=== PATIENT | male | born 1965 | race Caucasian/White ===

== ENCOUNTER → 2025-04-12 13:36 | Outpatient (CLI) | payer OTHER, SELFPAY ==
--- NOTE | 2025-04-12 13:38 | DI.MRI.S_ITS ---
PROCEDURE: MR ABDOMEN WO/W CON INDICATIONS: OTHER HEMOCHROMATOSIS TECHNIQUE: Coronal HASTE, axial 2D FLASH in- and [id number]; axial breath-hold T2 FSE. Dynamic axial VIBE during the administration of contrast; post-contrast coronal VIBE or 2D FLASH with fat saturation from the hepatic dome to the iliac crests. Optional diffusion weighted imaging and ADC may be performed. COMPARISON: None. FINDINGS: Image quality: Diagnostic. Lung bases: Unremarkable. Liver: No solid mass. No significant signal change between the inphase and out of phase images. Gallbladder: No gallstones or wall thickening. Biliary ducts: No biliary dilation. Pancreas: No ductal dilation. Spleen: Size is within normal limits. Adrenal Glands: No adrenal nodules. Kidneys and Ureters: No hydronephrosis. No solid mass. No complex renal cystic lesion which requires follow up. Stomach and Bowel: Normal colonic caliber, without significant wall thickening. Peritoneum: No abnormal intraperitoneal fluid. No free air. Ventral Wall: No hernia. Abdominal Nodes: No retroperitoneal or mesenteric adenopathy by size criteria. Vessels: Aorta and inferior vena cava are normal in size. Bones: No aggressive osseous abnormality. IMPRESSION: 1. No signs of significant iron deposition in the liver, spleen, pancreas or bone marrow. 2. No significant focal lesion seen. 3. Incompletely visualized fluid containing structure in the lower abdomen, may represent a dilated trabeculated bladder. This can be better assessed with ultrasound. Dictated by: Zaki Steven M.D. on 04/12/2025 at 21:22 Approved by: Zaki Steven M.D. on 04/12/2025 at 21:33
== END ==
PROVIDERS: Referring Provider Family Medicine; Visit Provider Family Medicine
DX: E83.118 Other hemochromatosis (principal)
CPT/HCPCS: 74183; A9579